=== PATIENT | female | born 1990 | race Caucasian/White ===

== ENCOUNTER 2017-07-05 18:49 | Emergency (ER) | payer OTHER ==
[~2017-07-05] VITALS: Ht 160 cm; Wt 62.6 kg
[2017-07-05 19:59] LABS: Basophils # (auto) 0 uL; Basophils % (auto) 0.3 % (0.0-2.0); CONDITION Y; Eosinophils # (auto) 0.1 uL; Eosinophils % (auto) 0.5 % (0.0-7.0); Hematocrit 41.1 % (36.0-46.0); Hemoglobin 14.2 g/dL (12.2-16.2); Lymphocytes # (auto) 2.2 uL; Lymphocytes % (auto) 16.7 % (10.0-50.0); Mean Corpuscular Hemoglobin 31.8 pg (28.0-32.0); Mean Corpuscular Hgb Conc. 34.5 g/dL (32.0-36.0); Mean Corpuscular Volume 92.3 fL (80.0-100.0); Mean Platelet Volume 8.9 fL (7.4-10.4); Monocytes # (auto) 0.6 uL; Monocytes % (auto) 4.7 % (0.0-12.0); Neutrophils # (auto) 10.1 uL; Neutrophils % (auto) 77.8 % (37.0-80.0); Platelet Count (auto) 305 10^3/uL (140-450); Red Cell Distribution Width 12.4 % (11.6-16.0)
[2017-07-05 20:03] LABS: Urine Bilirubin Negative (Negative); Urine Blood Negative /uL (Negative); Urine Color Colorless (Yellow); Urine Glucose Normal (Normal); Urine Nitrite Negative (Negative); Urine RBC <1 /hpf (0 - 4); Urine Squamous Epithelial Cell FEW /hpf (<5); Urine Urobilinogen Normal (Negative)
[2017-07-05 20:04] LABS: Urine Ketone 3+ (Negative)
[2017-07-05 20:13] LABS: Albumin 3.9 g/dL (3.4-5.0); Calcium 9.2 mg/dL (8.5-10.1)
[2017-07-05 20:23] LABS: BUN/Creatinine Ratio 12.3; Total Protein 7.9 g/dL (6.4-8.2)
[2017-07-05] MEDS ORDERED: SODIUM CHLORIDE 0.9% 1,000 ML IV ONE (20:43)
[2017-07-05 23:02] VITALS: BP 125/98
== END 2017-07-05 23:07 | disposition home or self-care (01) ==
LOC: ER 18:54
DX: O26.891 Other specified pregnancy related conditions, first trimester (principal); R10.30 Lower abdominal pain, unspecified; O21.8 Other vomiting complicating pregnancy; Z3A.01 Less than 8 weeks gestation of pregnancy
CPT/HCPCS: 36415; 76801; 80053; 81001; 84702; 85025; 96360; 96361; 99285; J7030

== ENCOUNTER 2017-10-16 11:40 | Observation (INO) | payer MEDICAID ==
[2017-10-16] MEDS ORDERED: LACTATED RINGER'S 1,000 ML IV ONE (12:25)
[2017-10-16] MEDS ORDERED: PROMETHAZINE HCL 25 MG/ML 1ML IV ONE (12:30)
[2017-10-16] MEDS ORDERED: HYDROcodone-ACET 10/325MG TAB PO ONE (12:30)
[2017-10-16] MEDS ORDERED: DOXY10TA PO (14:26)
[2017-10-16] MEDS ORDERED: PREN-96 PO (14:27)
== END 2017-10-16 14:20 | disposition home or self-care (01) | DRG 566 ==
LOC: LDRP 11:40
PROVIDERS: ADMIT Obstetrics & Gynecology; ATTEND Obstetrics & Gynecology
DX: O26.892 Other specified pregnancy related conditions, second trimester (principal); G43.909 Migraine, unspecified, not intractable, without status migrainosus; R10.32 Left lower quadrant pain; O21.0 Mild hyperemesis gravidarum; Z3A.22 22 weeks gestation of pregnancy
CPT/HCPCS: 59025; 81002; 96361; 96374; G0378; J2550

== ENCOUNTER 2017-11-10 00:18 | Observation (INO) | payer SELFPAY ==
[~2017-11-10 00:18] MED LIST: DOXY10TA PO; PREN-96 PO
[2017-11-10] MEDS ORDERED: TERBUTALINE SULFATE 1 MG/ML 1ML VIAL SC ONE (00:49)
== END 2017-11-10 02:17 | disposition home or self-care (01) | DRG 781 ==
LOC: LDRP 00:18
PROVIDERS: ADMIT Obstetrics & Gynecology; ATTEND Obstetrics & Gynecology
DX: O26.892 Other specified pregnancy related conditions, second trimester (principal); R10.9 Unspecified abdominal pain; Z3A.25 25 weeks gestation of pregnancy
CPT/HCPCS: 59025; 81002; 94760; G0378; J3105; 96372

== ENCOUNTER 2020-04-05 22:53 | Emergency (ER) | payer BC, MEDICAID, OTHER ==
[~2020-04-05] VITALS: Ht 162.6 cm; Wt 59.0 kg
[2020-04-05 23:31] VITALS: BP 118/92
== END 2020-04-06 01:24 | disposition left against medical advice (07) ==
LOC: ER 22:53
DX: M79.605 Pain in left leg (principal); Z53.21 Procedure and treatment not carried out due to patient leaving prior to being seen by health care provider